=== PATIENT | male | born 1965 | race Caucasian/White ===

== ENCOUNTER 2018-10-05 06:27 | Day surgery (SDC) | payer BC ==
[~2018-10-05 06:27] MED LIST: Lactated Ringers 1,000 ML IV SCH; ceFAZolin 2 GM in Premix Bag 1 BAG IV SCH
[2018-10-05] MEDS ORDERED: ceFAZolin 1 GM Vial ONE ×2 (07:14→08:00)
[2018-10-05] MEDS ORDERED: Bupivacaine 0.5% 30 ML SDV ONE (07:15)
[2018-10-05] MEDS ORDERED: Ondansetron 4 MG/2 ML SDV ONE (07:18)
[2018-10-05] MEDS ORDERED: Propofol 200 MG/20 ML SDV ONE (07:18)
[2018-10-05] MEDS ORDERED: Midazolam 1 MG/ML 2 ML SDV ONE (07:19)
[2018-10-05] MEDS ORDERED: Ketorolac 30 MG/ML SDV ONE (07:19)
[2018-10-05] MEDS ORDERED: fentaNYL 100 MCG/2 ML SDV ONE ×3 (07:19→09:51)
[2018-10-05] MEDS ORDERED: Sugammadex Sodium 200 MG/2 ML VIAL ONE (07:29)
--- NOTE | 2018-10-05 07:39 | PCM.PREANE ---
Preanesthetic Assessment - Anesthesia/Transfusion/Family Hx Anesthesia History: Prior Anesthesia Without Reaction Family History of Anesthesia Reaction: No Transfusion History: Prior Transfusion Without Reaction - Review of Systems General: No Symptoms Pulmonary: No Symptoms Cardiovascular: No Symptoms Gastrointestinal: No Symptoms Neurological: No Symptoms Other: Reports: None - Physical Assessment NPO Status Date: 10/04/18 O2 Sat by Pulse Oximetry: 93 Respiratory Rate: 16 Vital Signs: Last Vital Signs Temp 97.9 F 10/05/18 07:00 Pulse 77 10/05/18 07:00 Resp 16 10/05/18 07:00 BP 130/83 10/05/18 07:00 Pulse Ox 93 L 10/05/18 07:00 Height: 5 ft 11 in Weight: 112.037 kg ASA Class: 2 Mental Status: Alert & Oriented x3 Airway Class: Mallampati = 1 Dentition: Reports: Missing Tooth/Teeth ROM/Head Extension: Full Lungs: Clear to Auscultation, Normal Respiratory Effort Cardiovascular: Regular Rate, Regular Rhythm - Allergies Allergies/Adverse Reactions: Allergies Allergy/AdvReac Type Severity Reaction Status Date / Time shellfish derived Allergy lips swell Verified 09/29/18 16:33 - Blood Blood Available: No - Anesthesia Plan Pre-Op Medication Ordered: None - Acknowledgements Anesthesia Type Planned: General Anesthesia Pt an Appropriate Candidate for the Planned Anesthesia: Yes Alternatives and Risks of Anesthesia Discussed w Pt/Guardian: Yes Pt/Guardian Understands and Agrees with Anesthesia Plan: Yes PreAnesthesia Questionnaire HEENT History: Reports: Other (See Below) Other HEENT History: reading glasses Cardiovascular History: Reports: None Respiratory History: Reports: None Gastrointestinal History: Reports: None Genitourinary History: Reports: None Musculoskeletal History: Reports: Arthritis, Fracture Neurological History: Reports: Migraines Psychiatric History: Reports: None Endocrine/Metabolic History: Reports: Obesity/BMI 30+ Hematologic History: Reports: Blood Transfusion(s) Immunologic History: Reports: None Oncologic (Cancer) History: Reports: None - Past Surgical History Head Surgeries/Procedures: Reports: None HEENT Surgical History: Reports: Other (See Below) Other HEENT Surgeries/Procedures: surgery for fx jaw Cardiovascular Surgical History: Reports: None Respiratory Surgical History: Reports: None GI Surgical History: Reports: None Male Surgical History: Reports: None Endocrine Surgical History: Reports: None Neurological Surgical History: Reports: None Musculoskeletal Surgical History: Reports: ORIF, Other (See Below) Other Musculoskeletal Surgeries/Procedures:: ORIF rt femur fx, removal of hardware to rt femur, surgery for fx jaw with hardware Oncologic Surgical History: Reports: None Dermatological Surgical History: Reports: Skin Graft, Other (See Below) - SUBSTANCE USE Smoking Status *Q: Never Smoker Recreational Drug Use History: No - HOME MEDS Home Medications: Home Meds Aspirin/Acetaminophen/Caffeine [Migraine Formula Caplet] 1 tab PO ASDIRECTED PRN 09/29/18 [History] Ibuprofen [Motrin] 2 tab PO ASDIRECTED PRN 09/29/18 [History] - CURRENT (IN HOUSE) MEDS Current Meds: Current Medications Cefazolin Sodium/Dextrose 2 gm (/ Premix) 50 mls @ 100 mls/hr IV ONETIME ALLI Lactated Ringer's (Ringers, Lactated) 1,000 mls @ 125 mls/hr IV ASDIRECTED ALLI Last Admin: 10/05/18 07:17 Dose: 125 mls/hr Discontinued Medications Bupivacaine HCl (Marcaine 0.5%) Confirm Administered Dose 30 ml .ROUTE .STK-MED ONE Stop: 10/05/18 07:16 Cefazolin Sodium (Ancef) Confirm Administered Dose 1 gm .ROUTE .STK-MED ONE Stop: 10/05/18 07:15 Fentanyl (Sublimaze) Confirm Administered Dose 100 mcg .ROUTE .STK-MED ONE Stop: 10/05/18 07:20 Acetaminophen (Ofirmev) Confirm Administered Dose 100 mls @ as directed IV .STK- MED ONE Stop: 10/05/18 07:30 Ketorolac Tromethamine (Toradol) Confirm Administered Dose 30 mg .ROUTE .STK- MED ONE Stop: 10/05/18 07:20 Midazolam HCl (Versed 1 Mg/Ml) Confirm Administered Dose 2 mg .ROUTE .STK-MED ONE Stop: 10/05/18 07:20 Ondansetron HCl (Zofran) Confirm Administered Dose 4 mg .ROUTE .STK-MED ONE Stop: 10/05/18 07:19 Propofol (Diprivan 20 Ml) Confirm Administered Dose 400 mg .ROUTE .STK-MED ONE Stop: 10/05/18 07:19 Sugammadex Sodium (Bridion) Confirm Administered Dose 200 mg .ROUTE .STK-MED ONE Stop: 10/05/18 07:30
[2018-10-05] MEDS ORDERED: Glycopyrrolate 0.2 MG/ML SDV ONE (07:45)
[2018-10-05] MEDS ORDERED: Sodium Chloride 0.9% 20 ML ONE (08:00)
[2018-10-05] MEDS ORDERED: Morphine 10 MG/ML Syringe ONE (08:05)
[2018-10-05] MEDS ORDERED: Ondansetron 4 MG/2 ML SDV IVPUSH PRN (09:50)
[2018-10-05] MEDS ORDERED: Acetaminophen/HYDROcodone 325-5 MG Tab PO PRN (09:50)
[2018-10-05] MEDS ORDERED: Morphine 10 MG/ML Syringe IVPUSH PRN (09:50)
--- NOTE | 2018-10-05 09:56 | PCM.OPNOTE ---
- General Post-Op/Procedure Note Date of Surgery/Procedure: 10/05/18 Operative Procedure(s): Repair recurrent incarcerated right inguinal hernia Pre Op Diagnosis: Recurrent incarcerated right inguinal hernia Post-Op Diagnosis: Same Anesthesia Technique: General ET Tube (ASA II) Primary Surgeon: Scott Ontiveros Fluid Replacement, Intraop: 1,700 EBL in mLs: 20 Condition: Good Free Text/Narrative:: DICTATION [id number] CPT CODE 01324
[2018-10-05] MEDS ORDERED: HYDROmorphone 2 MG/ML SDV IVPUSH ONE (09:58)
[2018-10-05] MEDS ORDERED: Lactated Ringers 1,000 ML IV SCH (10:00)
[2018-10-05] MEDS: fentaNYL 100 MCG/2 ML SDV IVPUSH PRN ×2 (10:01→10:06)
[2018-10-05] MEDS ORDERED: HYDROmorphone 2 MG/ML Syringe ONE (10:04)
[2018-10-05] MEDS ORDERED: Desflurane 240 ML Bottle ONE (10:08)
[2018-10-05] MEDS ORDERED: Ketamine 500 mg/10 ML MDV IV ONE (10:11)
[2018-10-05] MEDS ORDERED: Ketamine 500 mg/10 ML MDV ONE (10:13)
--- NOTE | 2018-10-05 10:33 | PCM.POSTAN ---
POST ANESTHESIA ASSESSMENT - MENTAL STATUS Mental Status: Alert, Oriented - RESPIRATORY Respiratory Status: Respiratory Rate WNL, Airway Patent, O2 Saturation Stable - CARDIOVASCULAR CV Status: Pulse Rate WNL, Blood Pressure Stable - GASTROINTESTINAL GI Status: No Symptoms - PAIN Pain Score: 6 Free Text/Narrative:: Patient received multiple medications for pain control. After receiving ketamine his pain has improved significantly. VSS. - POST OP HYDRATION Hydration Status: Adequate & Stable
--- NOTE | 2018-10-05 14:25 | PCM48HPAN ---
Post Anesthesia Note - EVALUATION WITHIN 48HRS OF ANESTHETIC Vital Signs in Normal Range: Yes Patient Participated in Evaluation: Yes Respiratory Function Stable: Yes Airway Patent: Yes Cardiovascular Function Stable: Yes Hydration Status Stable: Yes Pain Control Satisfactory: Yes Nausea and Vomiting Control Satisfactory: Yes Mental Status Recovered: Yes Resp Rate: 10
[2018-10-05 15:35] VITALS: BP 128/70
--- NOTE | 2018-10-05 15:53 | OR ---
SURGEON: Scott Ontiveros M.D. DATE OF PROCEDURE: 10/05/2018 PROCEDURE PERFORMED: Repair of recurrent incarcerated right inguinal hernia with large Bard PerFix plug and patch. ANESTHESIA: General endotracheal. ASA CLASSIFICATION: II. PREOPERATIVE DIAGNOSIS: Recurrent incarcerated right inguinal hernia. POSTOPERATIVE DIAGNOSIS: Recurrent incarcerated right inguinal hernia. ESTIMATED BLOOD LOSS: 20 mL. INTRAOPERATIVE FLUID REPLACEMENT: 1700 mL of crystalloid. DESCRIPTION OF PROCEDURE: The patient was taken to the operating room, placed on the operating table in the supine position. Time-out was called for appropriate identification of the patient and procedure. Thigh-high TEDs and sequential compression boots were placed. Following satisfactory attainment of general endotracheal anesthesia, the abdomen was prepped with ChloraPrep solution and sterile drapes were applied. The skin in the right inguinal crease was infiltrated with 0.5% Marcaine solution. The skin incision was made and deepened through the subcutaneous tissue obtaining hemostasis with the use of electrocautery. Dissection was carried down to the external oblique, which was opened in the direction of its fibers. The patient had a very large recurrent right inguinal hernia. This was able to be mobilized away from the cord with moderate difficulty. The cord was then encircled with a Nelida drain and retracted out of harm's way. The sac was opened to allow for reduction of the contents. There was a large amount of omentum present but no bowel. Once the hernia sac was completely mobilized and the contents reduced, high ligation of the hernia sac was carried out with a 2-0 silk suture. The wound was then inspected for hemostasis and bleeding sites were electrocoagulated. A large Bard PerFix plug and patch was brought to the operating table. This was soaked in 1% Ancef solution. The plug was placed into the lateral defect at the internal inguinal ring. The patch was placed over the floor to reinforce it and brought around the cord laterally. The plug was secured with 0 Ethibond suture to prevent migration. The patch was placed over this and secured medially and inferiorly to Mikhail's ligament and superiorly to transversalis fascia. The wings were brought around the cord laterally and also secured to the transversalis fascia with 0 Ethibond sutures. All sutures were placed under direct vision and held with hemostats until the final suture had been placed. Once all sutures except the lateral suture were secured, the patient was given a Valsalva maneuver to 60 cm of water. The repair was solid. The lateral stitch was then secured. The wound was irrigated with 1% Ancef solution. The testicle was returned to its normal anatomic location. The external oblique was then closed with 3-0 Vicryl. Samia's fascia was closed with 3-0 Vicryl and the skin edges reapproximated with subcuticular 4-0 Maxon reinforced with half-inch Steri-Strips. The wound was then dressed with a sterile Tegaderm pad. Sponge, needle, instrument counts were all correct. Following emergence from anesthesia and extubation, the patient was taken to recovery room in stable condition. BASIL JACKSON /[id number]
== END 2018-10-05 14:30 | disposition home or self-care (01) ==
LOC: MW.SDS 06:27
PROVIDERS: ATTEND Surgery
DX: K40.31 Unilateral inguinal hernia, with obstruction, without gangrene, recurrent (principal); G43.909 Migraine, unspecified, not intractable, without status migrainosus; M17.11 Unilateral primary osteoarthritis, right knee; Z91.013 Allergy to seafood; Z79.82 Long term (current) use of aspirin; Z79.899 Other long term (current) drug therapy
CPT/HCPCS: 49521; C1781; J0131; J0690; J1170; J1885; J2250; J2270; J2405; J2704; J3010; J3490; J7120

== ENCOUNTER 2023-12-11 11:23 | Emergency (ER) | payer BC, MEDICAID ==
[2023-12-11 11:54] VITALS: BP 148/86; PULSE 78
[2023-12-11] MEDS: Sodium Chloride 0.9% 2.5 ML Syringe FLUSH PRN (12:27)
[2023-12-11] MEDS: Sodium Chloride 0.9% 10 ML Syringe FLUSH PRN (12:28)
[2023-12-11 12:41] LABS: BASOPHILS ABSOLUTE AUTO 0.04 K/uL (0.00-0.20); BASOPHILS PERCENT AUTO 0.7 % (0.0-1.0); EOSINOPHILS ABSOLUTE AUTO 0.24 K/uL (0.00-0.45); EOSINOPHILS PERCENT AUTO 4.3 % (0.0-6.0); HEMATOCRIT 43.8 % (42.0-52.0); IMMATURE GRAN ABSOLUTE AUTO 0.02 K/uL (0.00-0.05); IMMATURE GRAN PERCENT AUTO 0.4 % (0.0-0.4); LYMPHOCYTES ABSOLUTE AUTO 1.43 K/uL (1.00-4.80); LYMPHOCYTES PERCENT AUTO 25.5 % (24.0-44.0); MEAN CORPUSCULAR HGB CONC 34.2 g/dL (32.0-36.0); MEAN CORPUSCULAR VOLUME 93.4 fL (83.0-99.0); MEAN PLATELET VOLUME 9.5 fL (9.4-12.4); MONOCYTES ABSOLUTE AUTO 0.48 K/uL (0.00-0.80); MONOCYTES PERCENT AUTO 8.6 % (0.0-8.0); NEUTROPHILS ABSOLUTE AUTO 3.39 K/uL (1.80-7.70); NEUTROPHILS PERCENT AUTO 60.5 % (41.0-71.0); PLATELET COUNT,PLT 185 K/uL (150-400); RED BLOOD CELL COUNT 4.69 M/uL (4.52-5.90)
[2023-12-11 13:11] LABS: ALBUMIN 3.5 g/dL (3.4-5.0); BILIRUBIN TOTAL 0.7 mg/dL (0.2-1.0); C-REACTIVE PROTEIN 0.23 mg/dL (<0.3); CALCIUM 8.3 mg/dL (8.5-10.1); CARBON DIOXIDE,CO2 23.2 mmol/L (21.0-32.0); CREATININE 0.9 mg/dL (0.8-1.3); EST CRCL DRUG DOSING (CG) 95.29 mL/min; POTASSIUM,K 3.9 mmol/L (3.5-5.1)
[2023-12-11] MEDS: Iopamidol 755 MG/ML 500 ML Multipack Bottle IVPUSH STA (17:45)
== END 2023-12-11 15:00 | disposition home or self-care (01) ==
LOC: MW.ED 11:23
DX: L03.115 Cellulitis of right lower limb (principal); L97.919 Non-pressure chronic ulcer of unspecified part of right lower leg with unspecified severity; L89.899 Pressure ulcer of other site, unspecified stage; Z91.013 Allergy to seafood; E66.9 Obesity, unspecified; Z68.34 Body mass index [BMI] 34.0-34.9, adult
CPT/HCPCS: 36415; 73701; 80053; 85025; 85652; 86140; 99284; J3490; Q9967; 99283

== ENCOUNTER 2024-04-05 11:14 | Emergency (ER) | payer SELFPAY ==
[2024-04-05 11:34] VITALS: BP 151/92
[2024-04-05] MEDS: Cephalexin 500 MG Cap PO ONE (11:58)
[2024-04-05] MEDS: Sulfamethoxazole/Trimethoprim 800-160 MG Tab PO STA (11:58)
[2024-04-05 12:01] VITALS: PULSE 77
== END 2024-04-05 12:01 | disposition home or self-care (01) ==
LOC: MW.ED 11:14
DX: L03.115 Cellulitis of right lower limb (principal); L97.819 Non-pressure chronic ulcer of other part of right lower leg with unspecified severity; E66.9 Obesity, unspecified; Z68.34 Body mass index [BMI] 34.0-34.9, adult; Z91.013 Allergy to seafood
CPT/HCPCS: 99283; A9270